=== PATIENT | male | born 1990 | race Caucasian/White ===

== ENCOUNTER → 2023-02-16 09:06 | Outpatient (CLI) | payer OTHER, SELFPAY ==
--- NOTE | ~2023-02-16 | MR_ITS ---
MRI of the left shoulder Technique: Axial proton-density fat-sat images, coronal proton density fat-sat and T2 fat-sat images, and sagittal T1-weighted and T2 fat-sat images were acquired. Clinical History: Dislocation Findings: There is severe AC joint degenerative change, with bony productive change and mild reactive marrow edema. Coracoclavicular, coracoacromial, and coracohumeral ligaments are intact. There is probable low to moderate grade articular surface partial tearing focally at the midportion o f the supraspinatus tendon. No high-grade partial or full-thickness tear evident. Infraspinatus tendo n is intact. Subscapularis tendon is intact. Tendon of long head of the biceps is intact. There is a large Hill-Sachs impaction deformity of the humeral head with extensive marrow edema. No d egenerative change of the glenohumeral joint evident. Inferior glenohumeral ligament is intact. No hector int effusion. No fluid distention of the subacromial/subdeltoid bursa. No muscle atrophy or edema. There is labral tearing extending from the anteroinferior portion through the anterior portion of the equator. IMPRESSION: Anteroinferior labral tear extending through the anterior portion at the equator. Large acute Hill-Sachs impaction deformity of the humeral head. Probable focal low to moderate grade articular surface partial tear at the midportion of the supraspi natus tendon. Severe AC joint degenerative change. Reviewed, dictated and finalized at [facility]. IMPRESSION: Anteroinferior labral tear extending through the anterior portion at the equat or. Large acute Hill-Sachs impaction deformity of the humeral head. Probable focal low to moderate grade articular surface partial tear at the midp ortion of the supraspinatus tendon. Severe AC joint degenerative change.
== END ==
PROVIDERS: PCP Family Medicine; Visit Provider Orthopaedic Surgery
DX: S43.492A Other sprain of left shoulder joint, initial encounter (principal); M19.012 Primary osteoarthritis, left shoulder; X58.XXXA Exposure to other specified factors, initial encounter
CPT/HCPCS: 73221